=== PATIENT | male | born 1980 | race Caucasian/White ===

== ENCOUNTER → 2017-11-22 | Outpatient (CLI) | payer BC, OTHER ==
[2017-11-22 15:34] LABS: ALBUMIN 4.2 gm/dl (3.4-5.0); ALT/SGPT 20 U/L (12-78); BLOOD UREA NITROGEN 11 mg/dl (7-18); CALCIUM 8.9 mg/dl (8.5-10.1); CARBON DIOXIDE 30 mmol/L (21-32); CHOLESTEROL 151 mg/dl (0-200); CREATININE 1.01 mg/dl (0.60-1.40); GLUCOSE 156 mg/dl (70-99); POTASSIUM 4.1 mmol/L (3.5-5.1); SODIUM 137 mmol/L (136-145)
[2017-11-22 15:45] LABS: ALKALINE PHOSPHATASE 74 U/L (45-117); AST/SGOT 16 U/L (15-37); LDL CHOLESTEROL CALCULATED 73 mg/dl
[2017-11-22 16:50] LABS: CREATININE RANDOM URINE 57.6 mg/dl
== END | disposition home or self-care (01) ==
LOC: C.LAB1850 14:15
PROVIDERS: ATTEND Internal Medicine Endocrinology, Diabetes & Metabolism
DX: Z72.0 Tobacco use (principal); E10.65 Type 1 diabetes mellitus with hyperglycemia; E10.649 Type 1 diabetes mellitus with hypoglycemia without coma; E55.9 Vitamin D deficiency, unspecified